=== PATIENT | female | born 1985 | race Caucasian/White ===

== ENCOUNTER 2018-07-24 20:21 | Emergency (ER) | payer MEDICAID ==
[~2018-07-24] VITALS: Ht 160 cm; Wt 81.6 kg
[2018-07-24 21:08] VITALS: Ht 160 cm; Wt 81.6 kg
[2018-07-24 22:34] VITALS: BP 115/72
== END 2018-07-24 22:34 | disposition home or self-care (01) ==
LOC: ED 20:21
DX: R21 Rash and other nonspecific skin eruption (principal); L29.9 Pruritus, unspecified

== ENCOUNTER 2019-06-10 10:13 | Emergency (ER) | payer MEDICAID ==
[~2019-06-10] VITALS: Ht 160 cm; Wt 83.0 kg
[2019-06-10 10:19] VITALS: Ht 160 cm; Wt 83.0 kg
[2019-06-10 11:56] VITALS: BP 108/69
== END 2019-06-10 11:56 | disposition home or self-care (01) ==
LOC: ED 10:13
DX: L02.411 Cutaneous abscess of right axilla (principal)
CPT/HCPCS: J2001

== ENCOUNTER 2019-06-13 20:34 | Emergency (ER) | payer MEDICAID ==
[~2019-06-13] VITALS: Ht 160 cm; Wt 85.3 kg
[2019-06-13 20:41] VITALS: Ht 160 cm; Wt 85.3 kg
[2019-06-13 21:06] VITALS: BP 100/58
== END 2019-06-13 21:06 | disposition home or self-care (01) ==
LOC: ED 20:34
DX: L02.412 Cutaneous abscess of left axilla (principal); Z48.01 Encounter for change or removal of surgical wound dressing